=== PATIENT | female | born 1960 | race Caucasian/White ===

== ENCOUNTER 2020-06-20 15:12 | Observation (INO) | payer MEDICARE, OTHER ==
[~2020-06-20] VITALS: Ht 167.6 cm; Wt 67.1 kg
[2020-06-20 15:58] LABS: RED BLOOD COUNT 3.49 M/UL (4.00-5.10); WHITE BLOOD COUNT 8.3 K/UL (4.5-11.0)
[2020-06-20] MEDS ORDERED: PEPCID40 MG PO (21:33)
[2020-06-20] MEDS ORDERED: REGLAN10 MG PO (21:33)
[2020-06-20] MEDS ORDERED: ATIVAN0.5 MG PO (21:34)
[2020-06-20] MEDS ORDERED: HYDROCODON-ACE1 EAC4 PO (21:35)
[2020-06-20] MEDS ORDERED: FLONASE 0.05% N16 GM (21:36)
[2020-06-20] MEDS ORDERED: CELEXA20 MG PO (21:36)
[2020-06-20] MEDS ORDERED: KENALOG CREAM 015 GM TOP (21:37)
[2020-06-20] MEDS ORDERED: EPIPEN 2-P0.3 MG/0.3 INJ (21:38)
[2020-06-21 04:16] LABS: HEMOGLOBIN 9.6 gm/dl (12.3-15.3); WHITE BLOOD COUNT 7.8 K/UL (4.5-11.0)
[2020-06-21 04:32] LABS: RED BLOOD COUNT 3.01 M/UL (4.00-5.10)
[2020-06-21 04:41] LABS: BUN/CREATININE RATIO 16 (0-10)
[2020-06-21] MEDS ORDERED: ASPIRIN EC81 MG PO (15:13)
== END 2020-06-21 20:00 | disposition home or self-care (01) ==
LOC: ER1 15:12 → MED SURG 4 17:00 → CDU 17:00 → MED SURG 4 21:08
PROVIDERS: Physician Assistant; ADMIT Family Medicine
DX: R77.8 Other specified abnormalities of plasma proteins (principal); R11.2 Nausea with vomiting, unspecified; D64.9 Anemia, unspecified; K21.9 Gastro-esophageal reflux disease without esophagitis; R74.01 Elevation of levels of liver transaminase levels; R06.00 Dyspnea, unspecified; F41.9 Anxiety disorder, unspecified; G89.29 Other chronic pain; M54.9 Dorsalgia, unspecified; Z98.890 Other specified postprocedural states; Z82.49 Family history of ischemic heart disease and other diseases of the circulatory system; Z88.5 Allergy status to narcotic agent; Z79.82 Long term (current) use of aspirin; Z79.899 Other long term (current) drug therapy; Z20.822 Contact with and (suspected) exposure to COVID-19
CPT/HCPCS: ECHO; 36415; 71045; 80048; 80053; 82550; 82553; 83874; 84484; 85025; 93005; 93306; 96374; 99152; 99285; C1769; G0378; J1644; J2250; J2405; J3010; Q9967; U0002